=== PATIENT | female | born 1990 | race Caucasian/White ===

== ENCOUNTER 2024-12-10 22:31 | Emergency (ER) | payer BC, SELFPAY ==
[2024-12-10 22:55] VITALS: BP 132/89; PULSE 77; RESP 18; TEMP 37; O2SAT 99; BMI 25.1
[2024-12-11 02:20] VITALS: BP 127/87; PULSE 83; RESP 14; TEMP 36.7; O2SAT 99
--- NOTE | 2024-12-11 03:56 | PC.NURSE ---
patient notified registration that they were leaving due to wait time.
== END 2024-12-11 03:57 | disposition left against medical advice (07) ==
PROVIDERS: Emergency Provider Internal Medicine; PCP Nurse Practitioner Adult Health
DX: S61.213A Laceration without foreign body of left middle finger without damage to nail, initial encounter (principal); V91.19XA Crushed between unspecified watercraft and other watercraft or other object due to collision, initial encounter; Y93.9 Activity, unspecified; Y92.009 Unspecified place in unspecified non-institutional (private) residence as the place of occurrence of the external cause; Y99.9 Unspecified external cause status; Z53.21 Procedure and treatment not carried out due to patient leaving prior to being seen by health care provider
CPT/HCPCS: 99281; 99282